=== PATIENT | male | born 1945 | race Caucasian/White ===

== ENCOUNTER 2017-03-04 15:19 | Emergency (ER) | payer MEDICAID, MEDICARE ==
[~2017-03-04] VITALS: Ht 165.1 cm; Wt 68.3 kg
[~2017-03-04 15:19] MED LIST: ALBU90AE INH; FOLI-17 PO; FURO-92 PO; GUAI5SYR PO; HYDR-3138 PO; IPRA3AMP INH; LEVO500T8 PO; LORA-445 PO; METO25TA91 PO; MULT1TAB60 PO; OMEP-110 PO; POTA20TA6 PO; PRED20TA PO; PRED5TAB PO; RANI75TA12 PO; SULF1TAB3 PO; THIA100T6 PO
[2017-03-04] MEDS ORDERED: ALBUTEROL/IPRATROPIUM 2.5MG/0.5MG, 3 ML NPPB ONE (16:30)
[2017-03-04] MEDS ORDERED: LEVOFLOXACIN 750 MG TABLET ONE (16:46)
[2017-03-04] MEDS ORDERED: ALBUTEROL/IPRATROPIUM 2.5MG/0.5MG, 3 ML ONE (16:48)
[2017-03-04] MEDS ORDERED: LEVOFLOXACIN 750 MG TABLET PO ONE (17:00)
[2017-03-04 19:41] VITALS: BP 159/87
== END 2017-03-04 20:33 | disposition home or self-care (01) ==
LOC: ED 19:14
DX: J18.9 Pneumonia, unspecified organism (principal); F10.220 Alcohol dependence with intoxication, uncomplicated; F17.200 Nicotine dependence, unspecified, uncomplicated; J44.9 Chronic obstructive pulmonary disease, unspecified; I50.9 Heart failure, unspecified
CPT/HCPCS: 71010; 94640; J7620